=== PATIENT | male | born 1980 | race Caucasian/White ===

== ENCOUNTER 2016-11-10 10:16 | Emergency (ER) | payer MEDICAID ==
[2016-11-10 10:50] LABS: BASOPHILS 0.3 % (0.0-2.0); EOSINOPHILS 1.8 % (0-7); IMMATURE GRANULOCYTES 0.1 % (0-5); LYMPHOCYTES 29.3 % (15-50); MCH 30.5 pg (26.0-34.0); MCHC 33.3 g/dL (31.0-37.0); MCV 91.5 fL (80.0-100.0); MEAN PLATELET VOLUME 11.1 fL (7.4-10.4); MONOCYTES 5.9 % (2-11); NEUTROPHILS 62.6 % (40-80); PLATELET COUNT 231 10x3/uL (130-400); RBC 4.59 10x6/uL (4.20-6.10); RDW 13.3 % (11.5-14.5)
[2016-11-10 10:59] LABS: COLOR YELLOW (YELLOW)
[2016-11-10 11:00] LABS: APPEARANCE HAZY (CLEAR); BILIRUBIN NEGATIVE (NEGATIVE); GLUCOSE NEGATIVE (NEGATIVE); KETONE NEGATIVE (NEGATIVE); LEUKOCYTE ESTERASE NEGATIVE (NEGATIVE); NITRITE NEGATIVE (NEGATIVE); PROTEIN NEGATIVE (NEGATIVE); UROBILINOGEN NORMAL (NORMAL)
[2016-11-10 11:07] LABS: ALBUMIN 4.5 g/dL (3.4-5.0); ALKALINE PHOSPHATASE 85 U/L (46-116); ALT (SGPT) 29 U/L (10-68); BILIRUBIN - TOTAL 0.25 mg/dL (0.2-1.3); CALC OSMOLALITY 281 mosm/kg (275-300); CALCIUM 9.4 mg/dL (8.5-10.1); CARBON DIOXIDE 29.9 mmol/L (21.0-32.0); CHLORIDE - SERUM 100 mmol/L (98-107); GLUCOSE 95 mg/dL (74-106); SODIUM 139 mmol/L (136-145); UREA NITROGEN 23 mg/dL (7-18); eGFR NON AFRICAN AMERICAN 89 mL/min (90-120)
== END 2016-11-10 14:09 | disposition home or self-care (01) ==
LOC: D.ER 10:16
PROVIDERS: Emergency Medicine; Nurse Practitioner Family
DX: K59.00 Constipation, unspecified (principal); R10.9 Unspecified abdominal pain

== ENCOUNTER 2021-02-23 04:30 | Inpatient (IN) | payer BC ==
[~2021-02-23] VITALS: Ht 182.9 cm; Wt 86.4 kg
[2021-02-23 05:03] VITALS: BP 141/88
[2021-02-23 05:31] LABS: BASOPHILS 0.6 % (0-2); EOSINOPHILS 3.9 % (0-7); HEMATOCRIT 43.7 % (42.0-54.0); HEMOGLOBIN 14.7 g/dL (13.5-17.5); LYMPHOCYTES 10.8 % (15-50); MCH 29.8 pg (26.0-34.0); MCHC 33.7 g/dL (31.0-37.0); MCV 88.4 fL (80.0-100.0); MEAN PLATELET VOLUME 8.2 fL (7.4-10.4); MONOCYTES 6.9 % (2-11); NEUTROPHILS 77.8 % (40-80); RBC 4.95 10x6/uL (4.20-6.10); RDW 14.8 % (11.5-14.5); WBC 14.7 10x3/uL (4.8-10.8)
[2021-02-23 05:33] LABS: BILIRUBIN NEGATIVE (NEGATIVE); KETONE SMALL mg/dL (NEGATIVE); NITRITE NEGATIVE (NEGATIVE); UROBILINOGEN NORMAL mg/dL (< 2)
[2021-02-23 05:33] LABS: PLATELET COUNT 300 10x3/uL (130-400)
[2021-02-23 05:45] LABS: UDS - AMPHET POSITIVE QUAL (NEGATIVE); UDS - BARB NEGATIVE QUAL (NEGATIVE); UDS - BENZO NEGATIVE QUAL (NEGATIVE); UDS - COCAINE NEGATIVE QUAL (NEGATIVE); UDS - OPIATE NEGATIVE QUAL (NEGATIVE); UDS - PCP NEGATIVE QUAL (NEGATIVE); UDS - THC NEGATIVE QUAL (NEGATIVE)
[2021-02-23 05:46] LABS: APTT 29.3 SECONDS (22.8-39.4); INR 1.19 (0.85-1.17)
[2021-02-23 06:13] LABS: CALC OSMOLALITY 248 mosm/kg (275-300); CARBON DIOXIDE 24.4 mmol/L (21.0-32.0); CHLORIDE - SERUM 87 mmol/L (98-107); CREATININE - SERUM 0.7 mg/dL (0.6-1.3); GLUCOSE 87 mg/dL (74-106); POTASSIUM - SERUM 3.5 mmol/L (3.5-5.1); SODIUM 125 mmol/L (136-145); UREA NITROGEN 8 mg/dL (7-18); eGFR NON AFRICAN AMERICAN > 90 mL/min (90-120)
[2021-02-23 06:29] LABS: ALBUMIN 4.3 g/dL (3.4-5.0); ALKALINE PHOSPHATASE 118 U/L (30-120); ALT (SGPT) 143 U/L (10-68); BILIRUBIN - TOTAL 0.98 mg/dL (0.2-1.3); CKMB 123.4 U/L (0.0-3.6); MAGNESIUM - SERUM 1.9 mg/dL (1.8-2.4); PROTEIN - SERUM 8.4 g/dL (6.4-8.2); TROPONIN-I < 0.017 ng/mL (0.000-0.060)
[2021-02-23 06:43] LABS: CREATINE KINASE 11139 UL (21-232)
[2021-02-23 15:47] LABS: BASOPHILS 1.2 % (0-2); EOSINOPHILS 4.9 % (0-7); HEMATOCRIT 42.9 % (42.0-54.0); HEMOGLOBIN 14.3 g/dL (13.5-17.5); LYMPHOCYTES 14.3 % (15-50); MCH 29.7 pg (26.0-34.0); MCHC 33.4 g/dL (31.0-37.0); MCV 89.1 fL (80.0-100.0); MEAN PLATELET VOLUME 8.1 fL (7.4-10.4); MONOCYTES 8.1 % (2-11); NEUTROPHILS 71.5 % (40-80); PLATELET COUNT 295 10x3/uL (130-400); RBC 4.82 10x6/uL (4.20-6.10); RDW 14.9 % (11.5-14.5)
[2021-02-23 15:52] LABS: WBC 10.5 10x3/uL (4.8-10.8)
[2021-02-23 16:19] LABS: CALC OSMOLALITY 262 mosm/kg (275-300); CALCIUM 8.6 mg/dL (8.5-10.1); CARBON DIOXIDE 27.8 mmol/L (21.0-32.0); CHLORIDE - SERUM 96 mmol/L (98-107); CREATININE - SERUM 0.8 mg/dL (0.6-1.3); GLUCOSE 85 mg/dL (74-106); SODIUM 132 mmol/L (136-145); UREA NITROGEN 9 mg/dL (7-18); eGFR NON AFRICAN AMERICAN > 90 mL/min (90-120)
[2021-02-23 16:20] LABS: CREATINE KINASE 8448 UL (21-232); TROPONIN-I < 0.017 ng/mL (0.000-0.060)
[2021-02-23 19:00] VITALS: BP 145/92
--- NOTE | 2021-02-23 19:00 | NUR ---
REPORT FROM TON CUMMINS.
--- NOTE | 2021-02-23 20:00 | NUR ---
PT UP TO BATHROOM AT THIS TIME PT STATES THAT HE IS FEELING MUCH BETTER AFTER SHOWER STATES THAT HE HAS NOT TAKEN ONE IN A WEEK.
--- NOTE | 2021-02-23 21:52 | NUR ---
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
[2021-02-23 22:00] VITALS: BP 152/93
--- NOTE | 2021-02-24 | NUR ---
PT HAD CLAMPED NS. PT INFORMED NOT TO TOUCH FLUIDS. PT ASKING IF HE REALLY HAS TO KEEP MONITOR AND FLUIDS ON.
[2021-02-24 02:30] VITALS: BP 149/95
--- NOTE | 2021-02-24 02:30 | NUR ---
PT UP TO BATHROOM AT THIS TIME.
--- NOTE | 2021-02-24 04:02 | NUR ---
REPORT TO GENNY CUMMINS.
[2021-02-24 04:30] VITALS: BP 111/75
--- NOTE | 2021-02-24 05:10 | NUR ---
PT GETTING AGGITATED WITH NURSING STAFF AND HALLUCINATING AT THIS TIME. PT HAS NOT HAD ANY VISITORS TONIGHT BUT STATES HIS MOTHER AND SISTER WELL MULTIPLE FRIENDS HAVE BEEN IN THE ROOM WITH HIM. PT ALSO PULLED ALL CARDIAC MONITORING EQUIPTMENT OFF OF PERSON AND PULLED WIRES FROM MACHINE SUBSEQUENTLY THROWING THEM IN THE FLOOR. WHEN ASKED WHY PT STATES "I DIDNT DO IT. DONT TRY TO BLAME THAT SHIT ON ME. I DONT KNOW WHAT HAPPENED." BALAJI BOYLE APRN CONTACTED ABOUT STATUS OF PATIENT. TELEPHONE ORDERS FOR MEDICATIONS ENTERED INTO CHART AND ORDERS FOR AN AMMONIA LEVEL DRAW SENT TO LAB.
[2021-02-24 06:08] LABS: BASOPHILS 0.7 % (0-2); EOSINOPHILS 4.7 % (0-7); HEMATOCRIT 42.2 % (42.0-54.0); HEMOGLOBIN 13.9 g/dL (13.5-17.5); LYMPHOCYTES 15.5 % (15-50); MCH 29.8 pg (26.0-34.0); MCHC 32.9 g/dL (31.0-37.0); MCV 90.7 fL (80.0-100.0); MEAN PLATELET VOLUME 8.9 fL (7.4-10.4); MONOCYTES 8.9 % (2-11); NEUTROPHILS 70.2 % (40-80); PLATELET COUNT 290 10x3/uL (130-400); RBC 4.65 10x6/uL (4.20-6.10); RDW 15.1 % (11.5-14.5); WBC 8.4 10x3/uL (4.8-10.8)
[2021-02-24 06:19] LABS: INR 1.15 (0.85-1.17); PROTIME 13.6 SECONDS (11.6-15.0)
--- NOTE | 2021-02-24 06:51 | NUR ---
PT LYING ON RIGHT SIDE IN BED AT THIS TIME. RESPIRATIONS EVEN AND NON LABORED. PT ON TUB CHUCKER AT THIS TIME. NO ACUTE DISTRESS NOTED.
[2021-02-24 07:07] LABS: ALBUMIN 4.2 g/dL (3.4-5.0); ALKALINE PHOSPHATASE 100 U/L (30-120); ALT (SGPT) 136 U/L (10-68); BILIRUBIN - TOTAL 0.82 mg/dL (0.2-1.3); CALC OSMOLALITY 278 mosm/kg (275-300); CARBON DIOXIDE 25.3 mmol/L (21.0-32.0); CHLORIDE - SERUM 104 mmol/L (98-107); CREATININE - SERUM 0.8 mg/dL (0.6-1.3); GLUCOSE 90 mg/dL (74-106); MAGNESIUM - SERUM 2.1 mg/dL (1.8-2.4); PHOSPHOROUS 2.7 mg/dL (2.5-4.9); POTASSIUM - SERUM 4.2 mmol/L (3.5-5.1); PROTEIN - SERUM 7.7 g/dL (6.4-8.2); SODIUM 141 mmol/L (136-145); UREA NITROGEN 7 mg/dL (7-18); eGFR NON AFRICAN AMERICAN > 90 mL/min (90-120)
[2021-02-24 07:10] LABS: CKMB 44.6 U/L (0.0-3.6); CREATINE KINASE 6378 UL (21-232)
--- NOTE | 2021-02-24 07:19 | NUR ---
REPORT TO ONCOMING SHIFT
--- NOTE | 2021-02-24 08:30 | NUR ---
PATIENT SLEEPING. RESPIRATIONS REGULAR. MONITORS CABLES OFF IN FLOOR.
[2021-02-24 11:00] VITALS: BP 105/66
--- NOTE | 2021-02-24 11:00 | NUR ---
AWAKENED PATIENT FOR MEDICATIONS. REQUIRED REPEATED VERBAL AND TACTILE STIMULE. PATIENT ORIENTED. SPOKE OF ACTIONS DDURING THE NIGHT TAKING OFF MONITOR CABLES. MEMORY OF EVENTS PRIOR TO ADMISSING INTACT. DENIES PAIN.
--- NOTE | 2021-02-24 11:15 | NUR ---
REPORT CALLED TO MED/S[facility].
[2021-02-24 11:54] VITALS: BP 118/75; Ht 182.9 cm; Wt 86.4 kg
--- NOTE | 2021-02-24 11:58 | NUR ---
ASSESSMENT PER FLOW SHEET. PATIENT TO ROOM 2222 FROM ER VIA STRETCHER. PATIENT IS VERY LETHARGIC AND SLEEPING. DOES MOVE WHEN TOUCHED,BUT DOES NOT SPEAK. PATIENT PULLS AWAY AT TIMES. DOOR OPEN TO MONITOR.
--- NOTE | 2021-02-24 13:29 | NUR ---
SPOKE WITH [facility] BRYAN SUPERVISOR.I INFORMED THEM PATIENT MUST GET A TELEMETRY AND REMAIN ON IT OR BE TRANSFERED BACK TO ER HOLD OR ICU.
[2021-02-24 17:08] VITALS: BP 111/60
[2021-02-24 19:45] VITALS: BP 121/70
--- NOTE | 2021-02-24 20:00 | NUR ---
PT LYING IN BED WITHOUT DISTRESS, DENIES NEEDS AT THIS TIME. CL IN REACH
[2021-02-25 00:19] VITALS: BP 125/68
[2021-02-25 04:26] VITALS: BP 111/56
[2021-02-25 06:11] LABS: BASOPHILS 0.8 % (0-2); EOSINOPHILS 3.9 % (0-7); HEMATOCRIT 36.7 % (42.0-54.0); HEMOGLOBIN 12.4 g/dL (13.5-17.5); LYMPHOCYTES 21.3 % (15-50); MCH 30.5 pg (26.0-34.0); MCHC 33.6 g/dL (31.0-37.0); MCV 90.8 fL (80.0-100.0); MEAN PLATELET VOLUME 8.7 fL (7.4-10.4); MONOCYTES 9.2 % (2-11); NEUTROPHILS 64.8 % (40-80); PLATELET COUNT 236 10x3/uL (130-400); RBC 4.04 10x6/uL (4.20-6.10); RDW 15.2 % (11.5-14.5); WBC 7.9 10x3/uL (4.8-10.8)
[2021-02-25 06:12] LABS: INR 1.23 (0.85-1.17); PROTIME 14.3 SECONDS (11.6-15.0)
[2021-02-25 07:29] LABS: ALBUMIN 3.2 g/dL (3.4-5.0); ALKALINE PHOSPHATASE 76 U/L (30-120); BILIRUBIN - TOTAL 0.43 mg/dL (0.2-1.3); CALC OSMOLALITY 283 mosm/kg (275-300); CALCIUM 8.2 mg/dL (8.5-10.1); CARBON DIOXIDE 24.5 mmol/L (21.0-32.0); CHLORIDE - SERUM 110 mmol/L (98-107); CREATININE - SERUM 0.7 mg/dL (0.6-1.3); GLUCOSE 86 mg/dL (74-106); PHOSPHOROUS 3.1 mg/dL (2.5-4.9); POTASSIUM - SERUM 3.6 mmol/L (3.5-5.1); PROTEIN - SERUM 6.3 g/dL (6.4-8.2); SODIUM 144 mmol/L (136-145); UREA NITROGEN 7 mg/dL (7-18); eGFR NON AFRICAN AMERICAN > 90 mL/min (90-120)
[2021-02-25 07:35] LABS: ALT (SGPT) 90 U/L (10-68); CREATINE KINASE 1940 UL (21-232)
--- NOTE | 2021-02-25 09:15 | NUR ---
ASSESSMENT PER FLOW SHEET. PATIENT HAS BEEN UP IN ROOM THIS AM.HE IS WITHOUT DISTRESS.HE HAS EATEN BREAKFAST AND TALKING ON PHONE. MEDS ORDERED PER NOV.
[2021-02-25] MEDS ORDERED: NICODERM CQ1 EAC2 TRANSDERM (09:53)
[2021-02-25] MEDS ORDERED: MULTI-DAY VITAM1 TAB PO (09:54)
[2021-02-25] MEDS ORDERED: FOLIC ACID1 MG PO (09:54)
[2021-02-25] MEDS ORDERED: VITAMIN B-1100 M1 PO (09:54)
[2021-02-25 10:13] VITALS: BP 119/63
--- NOTE | 2021-02-25 11:20 | NUR ---
DISCHARGE INSTRUCTIONS,STATES UNDERSTANDING. IV DCD WITH CATH TIP INTACT. LEFT UNIT AMBULATORY. DECLINED WHEELCHAIR.
== END 2021-02-25 11:21 | disposition home or self-care (01) | DRG 558 ==
LOC: D.ER 04:30 → D.EDHOLD 07:19 → D.MS 07:19
PROVIDERS: Emergency Medicine; ADMIT Emergency Medicine; ATTEND Emergency Medicine
DX: M62.82 Rhabdomyolysis (principal); E87.1 Hypo-osmolality and hyponatremia; F15.10 Other stimulant abuse, uncomplicated; R74.01 Elevation of levels of liver transaminase levels; F17.200 Nicotine dependence, unspecified, uncomplicated; R00.0 Tachycardia, unspecified; D72.829 Elevated white blood cell count, unspecified